=== PATIENT | male | born 1990 | race Caucasian/White ===

== ENCOUNTER 2018-06-16 22:12 | Emergency (ER) | payer SELFPAY ==
[~2018-06-16] VITALS: Ht 180.3 cm; Wt 72.6 kg
[2018-06-16 22:14] VITALS: BP 139/81
[2018-06-16 22:25] VITALS: BP 139/81
== END 2018-06-16 22:25 ==
LOC: MED 22:12
DX: H11.30 Conjunctival hemorrhage, unspecified eye (principal); Z02.89 Encounter for other administrative examinations; V89.2XXA Person injured in unspecified motor-vehicle accident, traffic, initial encounter; Y93.89 Activity, other specified; Y92.89 Other specified places as the place of occurrence of the external cause; Y99.8 Other external cause status
CPT/HCPCS: 99283